=== PATIENT | female | born 1955 | race Caucasian/White ===

== ENCOUNTER 2020-08-20 12:33 | Inpatient (IN) | payer OTHER ==
[~2020-08-20] VITALS: Ht 170.2 cm; Wt 99.8 kg
[~2020-08-20 12:33] MED LIST: AMARYL1 MG PO; CRESTOR20 MG PO; ECOTRIN81 MG PO; HABITROL 21 MG P1 EA TOP; LYRICA150 MG PO; NORCO 5-325 TA1 EACH PO; NORVASC10 MG PO; PERCOCET 5-3251 EACH PO; TOPROL XL100 MG PO; TRAZODONE HCL100 MG PO; ZOLOFT100 MG PO
[2020-08-20 13:53] LABS: HEMOGLOBIN 13.4 gm/dl (12.3-15.3); RED BLOOD COUNT 4.56 M/UL (4.00-5.10); WHITE BLOOD COUNT 15.1 K/UL (4.5-11.0)
[2020-08-20] MEDS ORDERED: ROPINIROLE HCL1 MG PO (21:46)
[2020-08-20] MEDS ORDERED: PROTONIX40 MG PO (21:47)
[2020-08-20] MEDS ORDERED: COZAAR100 MG PO (21:47)
[2020-08-21 03:39] LABS: HEMOGLOBIN 11.6 gm/dl (12.3-15.3); RED BLOOD COUNT 3.9 M/UL (4.00-5.10); WHITE BLOOD COUNT 14.8 K/UL (4.5-11.0)
[2020-08-22 02:14] LABS: HEMOGLOBIN 11.1 gm/dl (12.3-15.3); RED BLOOD COUNT 3.81 M/UL (4.00-5.10); WHITE BLOOD COUNT 11.8 K/UL (4.5-11.0)
--- NOTE | 2020-08-23 01:08 | NUR ---
AT APPROXIMATELY 2300, NIKKI GUTIERREZ, ENTERED PATIENT'S ROOM IN RESPONSE TO AN IV BEEPING AND FOUND THAT PATIENT WAS PULLING OFF LEADS. WHEN MATT ATTEMPTED TO REPLACE LEADS, PT REFUSED TO ALLOW HER TO DO SO AND INFORMED MATT THAT SHE WAS 'GOING HOME'. AT THAT TIME, MATT CALLED OUT TO ME FROM THE ROOM THAT PATIENT WAS REMOVING HER LEADS. UPON ENTERING ROOM, FOUND THAT PATIENT WAS SITTING ON THE SIDE OF THE BED WITH TEARS IN HER EYES. MATT ASKED IF PT HAD CALLED HER , PT NODDED HER HEAD YES. PT THEN PROCEEDED TO BEGIN PUTTING HER CLOTHES ON. I LEFT THE ROOM AND CALLED REDDY, ASSOCIATE PROPERTY MANAGER, TO REPORT WHAT WAS GOING ON. REDDY ADVISED THAT PATIENT COULD NOT LEAVE THE FACILITY SAFELY DUE TO THE NATURE OF HER ILLNESS, INSTRUCTED ME TO CALL PATIENT'S FAMILY AND EXPLAIN THE SITUATION AND THEN TRY TO EXPLAIN THIS TO THE PATIENT. RE-ENTERED PATIENT'S ROOM AND BEGAN TO EXPLAIN THE SITUATION WHEN I WAS INFORMED BY NIKKI TYLER, THAT REDDY WAS ON THE PHONE. UPON ANSWERING PHONE, REDDY STATED THAT PATIENT'S WAS CURRENTLY IN THE BUILDING AND ON THE WAY UP INTENDING TO TAKE PATIENT HOME. PATIENT'S ENTERED ROOM AND BEGAN CONSOLING PATIENT AND EXPLAINING TO THE PATIENT THAT SHE COULD NOT GO HOME UNTIL CLEARED BY THE PHYSICIAN IN THE MORNING. AFTER CALMING DOWN, PATIENT LAID DOWN WITH AT BEDSIDE AND IS CURRENTLY RESTING COMFORTABLY WITH EYES CLOSED. CALL RAE IS WITHIN REACH. PATIENT ALLOWED US TO REPLACE LEADS.
[2020-08-23 04:07] LABS: RED BLOOD COUNT 3.8 M/UL (4.00-5.10); WHITE BLOOD COUNT 14.6 K/UL (4.5-11.0)
[2020-08-24 08:41] LABS: HEMOGLOBIN 11.1 gm/dl (12.3-15.3); RED BLOOD COUNT 3.82 M/UL (4.00-5.10); WHITE BLOOD COUNT 12.9 K/UL (4.5-11.0)
[2020-08-24] MEDS ORDERED: CLOPIDOGREL75 MG PO (11:51)
[2020-08-24] MEDS ORDERED: SPIRIVA18 MCG INH (13:01)
[2020-08-24] MEDS ORDERED: SYMBICORT 160-1 INHA INH (13:01)
[2021-01-05] MEDS ORDERED: HYDROCHLOROTHIA25 MG PO (07:34)
== END 2020-08-24 14:33 | disposition home or self-care (01) | DRG 246 ==
LOC: ER1 12:33 → CDU 20:26 → MED SURG 4 08-21 08:38 → PROG CARE 08-22 13:21
PROVIDERS: Internal Medicine; Internal Medicine Interventional Cardiology; Internal Medicine Nephrology; Nurse Practitioner; Physician Assistant Medical; ADMIT Internal Medicine
PROC: 4A023N7 Measurement of Cardiac Sampling and Pressure, Left Heart, Percutaneous Approach (ICD-10-PCS; principal; 2020-08-22)
PROC: 027034Z Dilation of Coronary Artery, One Artery with Drug-eluting Intraluminal Device, Percutaneous Approach (ICD-10-PCS; 2020-08-22)
PROC: B2111ZZ Fluoroscopy of Multiple Coronary Arteries using Low Osmolar Contrast (ICD-10-PCS; 2020-08-22)
PROC: B2181ZZ Fluoroscopy of Left Internal Mammary Bypass Graft using Low Osmolar Contrast (ICD-10-PCS; 2020-08-22)
PROC: B41F1ZZ Fluoroscopy of Right Lower Extremity Arteries using Low Osmolar Contrast (ICD-10-PCS; 2020-08-22)
PROC: 3E03317 Introduction of Other Thrombolytic into Peripheral Vein, Percutaneous Approach (ICD-10-PCS; 2020-08-22)
DX: I21.4 Non-ST elevation (NSTEMI) myocardial infarction (principal); I63.89 Other cerebral infarction; Q61.3 Polycystic kidney, unspecified; N18.4 Chronic kidney disease, stage 4 (severe); R47.01 Aphasia; I97.820 Postprocedural cerebrovascular infarction following cardiac surgery; K21.9 Gastro-esophageal reflux disease without esophagitis; E78.5 Hyperlipidemia, unspecified; Z95.1 Presence of aortocoronary bypass graft; F17.210 Nicotine dependence, cigarettes, uncomplicated; Z82.3 Family history of stroke; I25.119 Atherosclerotic heart disease of native coronary artery with unspecified angina pectoris; J44.9 Chronic obstructive pulmonary disease, unspecified; D64.9 Anemia, unspecified; E66.9 Obesity, unspecified; K80.80 Other cholelithiasis without obstruction; Z84.1 Family history of disorders of kidney and ureter; Z79.82 Long term (current) use of aspirin; Z79.899 Other long term (current) drug therapy; I12.9 Hypertensive chronic kidney disease with stage 1 through stage 4 chronic kidney disease, or unspecified chronic kidney disease; E11.22 Type 2 diabetes mellitus with diabetic chronic kidney disease; Z68.34 Body mass index [BMI] 34.0-34.9, adult; Z20.822 Contact with and (suspected) exposure to COVID-19; Y84.0 Cardiac catheterization as the cause of abnormal reaction of the patient, or of later complication, without mention of misadventure at the time of the procedure; Y71.8 Miscellaneous cardiovascular devices associated with adverse incidents, not elsewhere classified; Y92.230 Patient room in hospital as the place of occurrence of the external cause; R47.81 Slurred speech
CPT/HCPCS: ECHO; 36415; 70450; 70551; 71045; 80048; 80053; 80061; 81001; 82009; 82150; 82550; 82553; 82962; 83036; 83605; 83690; 83735; 83874; 84439; 84443; 84484; 85025; 85027; 85347; 85730; 92610; 93005; 93306; 93880; 96365; 96366; 96375; 96376; 97161; 99152; 99153; 99285; C1725; C1760; C1769; C1874; C1887; C9113; J0360; J1644; J2250; J2270; J2405; J3010; J7030; J7040; Q9965; U0002

== ENCOUNTER 2020-09-16 11:19 | Inpatient (IN) | payer OTHER ==
[~2020-09-16] VITALS: Ht 170.2 cm; Wt 99.8 kg
[~2020-09-16 11:19] MED LIST changes: +CLOPIDOGREL75 MG PO; +COZAAR100 MG PO; +PROTONIX40 MG PO; +ROPINIROLE HCL1 MG PO; +SPIRIVA18 MCG INH; +SYMBICORT 160-1 INHA INH
[2020-09-16 12:58] LABS: HEMOGLOBIN 11.6 gm/dl (12.3-15.3); RED BLOOD COUNT 4.09 M/UL (4.00-5.10); WHITE BLOOD COUNT 18.7 K/UL (4.5-11.0)
[2020-09-17 03:43] LABS: HEMOGLOBIN 10.3 gm/dl (12.3-15.3); WHITE BLOOD COUNT 15.9 K/UL (4.5-11.0)
[2020-09-17 03:46] LABS: RED BLOOD COUNT 3.65 M/UL (4.00-5.10)
[2020-09-18] MEDS ORDERED: DOXYCYCLINE HY100 M2 PO (11:50)
[2020-09-18] MEDS ORDERED: OMNICEF 300 MG300 MG PO (11:50)
[2021-01-05] MEDS ORDERED: HYDROCHLOROTHIA25 MG PO (07:34)
== END 2020-09-18 16:30 | disposition home or self-care (01) | DRG 193 ==
LOC: ER1 11:19 → MED SURG 4 16:24 → CDU 16:24 → MED SURG 4 09-17 11:22
PROVIDERS: Physician Assistant Medical; ADMIT Internal Medicine
DX: J18.9 Pneumonia, unspecified organism (principal); I21.4 Non-ST elevation (NSTEMI) myocardial infarction; Q61.3 Polycystic kidney, unspecified; N18.4 Chronic kidney disease, stage 4 (severe); E11.22 Type 2 diabetes mellitus with diabetic chronic kidney disease; Z20.822 Contact with and (suspected) exposure to COVID-19; F17.210 Nicotine dependence, cigarettes, uncomplicated; E66.9 Obesity, unspecified; I12.9 Hypertensive chronic kidney disease with stage 1 through stage 4 chronic kidney disease, or unspecified chronic kidney disease; D63.1 Anemia in chronic kidney disease; J44.9 Chronic obstructive pulmonary disease, unspecified; I25.10 Atherosclerotic heart disease of native coronary artery without angina pectoris; Z95.5 Presence of coronary angioplasty implant and graft; Z95.1 Presence of aortocoronary bypass graft; Z86.73 Personal history of transient ischemic attack (TIA), and cerebral infarction without residual deficits; Z79.01 Long term (current) use of anticoagulants; Z79.82 Long term (current) use of aspirin; Z79.899 Other long term (current) drug therapy; Z82.3 Family history of stroke; Z82.71 Family history of polycystic kidney
CPT/HCPCS: 0240U; 36415; 71045; 80048; 80053; 80202; 81001; 82550; 82553; 82962; 83605; 83690; 83874; 83880; 84484; 85025; 85379; 86140; 87040; 93005; 94640; 94664; 94760; 96365; 96366; 96367; 96372; 96375; 96376; 99285; C9113; G0378; J0692; J1650; J1940; J2543; J3370; J7070

== ENCOUNTER 2020-10-04 15:09 | Emergency (ER) | payer OTHER ==
[~2020-10-04 15:09] MED LIST changes: +DOXYCYCLINE HY100 M2 PO; +OMNICEF 300 MG300 MG PO
[2020-10-04 16:48] LABS: HEMOGLOBIN 11.2 gm/dl (12.3-15.3); RED BLOOD COUNT 4.04 M/UL (4.00-5.10); WHITE BLOOD COUNT 15.7 K/UL (4.5-11.0)
[2020-10-04] MEDS ORDERED: AZITHROMYCIN500 MG PO (18:26)
[2020-10-04] MEDS ORDERED: PREDNISONE 20 M20 MG PO (18:26)
[2021-01-05] MEDS ORDERED: HYDROCHLOROTHIA25 MG PO (07:34)
== END 2020-10-04 18:45 | disposition home or self-care (01) ==
LOC: ER1 15:09
PROVIDERS: Emergency Medicine
DX: J44.1 Chronic obstructive pulmonary disease with (acute) exacerbation (principal); E11.9 Type 2 diabetes mellitus without complications; E78.5 Hyperlipidemia, unspecified; I11.0 Hypertensive heart disease with heart failure; I50.9 Heart failure, unspecified; Z20.822 Contact with and (suspected) exposure to COVID-19; F17.290 Nicotine dependence, other tobacco product, uncomplicated; Z95.1 Presence of aortocoronary bypass graft
CPT/HCPCS: 0240U; 71045; 80053; 82550; 82553; 83690; 83735; 83874; 83880; 84100; 84484; 85025; 85610; 85730; 93005; 94664; 99285

== ENCOUNTER → 2020-12-23 | Outpatient (CLI) | payer OTHER ==
[~2020-12-23] MED LIST changes: +ASPIRIN EC81 MG PO; +ATIVAN0.5 MG PO; +AZITHROMYCIN500 MG PO; +FERROUS GLUCON324 M2 PO; +HYDROCHLOROTHIA25 MG PO; +HYDROCODONE-AC1 EACH PO; +ISOSORBIDE MONO30 MG PO; +MONTELUKAST SOD10 MG PO; +NEURONTIN400 MG PO; +PREDNISONE 20 M20 MG PO; +XYZAL5 MG PO
== END ==
LOC: RAD 15:40
DX: J44.9 Chronic obstructive pulmonary disease, unspecified (principal); R06.02 Shortness of breath; M19.90 Unspecified osteoarthritis, unspecified site; M54.5 Low back pain; M54.6 Pain in thoracic spine; M47.814 Spondylosis without myelopathy or radiculopathy, thoracic region; M51.36 Other intervertebral disc degeneration, lumbar region
CPT/HCPCS: 71046; 72072; 72100

== ENCOUNTER 2020-12-29 15:12 | Emergency (ER) | payer OTHER ==
[~2020-12-29 15:12] MED LIST changes: -ASPIRIN EC81 MG PO; -ATIVAN0.5 MG PO; -FERROUS GLUCON324 M2 PO; -HYDROCHLOROTHIA25 MG PO; -HYDROCODONE-AC1 EACH PO; -ISOSORBIDE MONO30 MG PO; -MONTELUKAST SOD10 MG PO; -NEURONTIN400 MG PO; -XYZAL5 MG PO
[2020-12-29 18:51] LABS: HEMOGLOBIN 8.2 gm/dl (12.3-15.3); RED BLOOD COUNT 2.96 M/UL (4.00-5.10); WHITE BLOOD COUNT 16.2 K/UL (4.5-11.0)
[2020-12-29 19:29] LABS: BUN/CREATININE RATIO 18 (0-10)
[2021-01-05] MEDS ORDERED: HYDROCHLOROTHIA25 MG PO (07:34)
== END 2020-12-29 23:00 | disposition home or self-care (01) ==
LOC: ER1 15:12
PROVIDERS: Emergency Medicine
DX: N18.9 Chronic kidney disease, unspecified (principal); D63.1 Anemia in chronic kidney disease
CPT/HCPCS: 71045; 80053; 81001; 82272; 82550; 82553; 83874; 83880; 84484; 85025; 87086; 99285

== ENCOUNTER 2021-01-04 08:24 | Emergency (ER) | payer OTHER ==
[2021-01-04 09:51] LABS: HEMOGLOBIN 7.4 gm/dl (12.3-15.3); RED BLOOD COUNT 2.71 M/UL (4.00-5.10); WHITE BLOOD COUNT 15.4 K/UL (4.5-11.0)
[2021-01-04 10:25] LABS: BUN/CREATININE RATIO 20 (0-10)
[2021-01-05] MEDS ORDERED: HYDROCHLOROTHIA25 MG PO (07:34)
== END 2021-01-04 20:10 | disposition home or self-care (01) ==
LOC: ER1 08:24
PROVIDERS: Physician Assistant
DX: T80.92XA Unspecified transfusion reaction, initial encounter (principal); D64.9 Anemia, unspecified; E78.5 Hyperlipidemia, unspecified; I25.2 Old myocardial infarction; E11.9 Type 2 diabetes mellitus without complications; Z86.73 Personal history of transient ischemic attack (TIA), and cerebral infarction without residual deficits
CPT/HCPCS: 36430; 71045; 80053; 82270; 82550; 82553; 82728; 83540; 83550; 83874; 84484; 85025; 86850; 86900; 86901; 86920; 99285; P9016

== ENCOUNTER → 2021-01-05 | Day surgery (SDC) | payer OTHER ==
[~2021-01-05] MED LIST changes: +ASPIRIN EC81 MG PO; +ATIVAN0.5 MG PO; +FERROUS GLUCON324 M2 PO; +HYDROCHLOROTHIA25 MG PO; +HYDROCODONE-AC1 EACH PO; +ISOSORBIDE MONO30 MG PO; +MONTELUKAST SOD10 MG PO; +NEURONTIN400 MG PO; +XYZAL5 MG PO
== END | disposition home or self-care (01) ==
LOC: OR 06:24
PROVIDERS: Internal Medicine Gastroenterology
PROC: 0DJD8ZZ Inspection of Lower Intestinal Tract, Via Natural or Artificial Opening Endoscopic (ICD-10-PCS; 2021-01-05)
PROC: 0DB68ZX Excision of Stomach, Via Natural or Artificial Opening Endoscopic, Diagnostic (ICD-10-PCS; principal; 2021-01-05 08:00)
PROC: 0DB78ZX Excision of Stomach, Pylorus, Via Natural or Artificial Opening Endoscopic, Diagnostic (ICD-10-PCS; 2021-01-05 08:00)
DX: K31.9 Disease of stomach and duodenum, unspecified (principal); K29.50 Unspecified chronic gastritis without bleeding; K25.9 Gastric ulcer, unspecified as acute or chronic, without hemorrhage or perforation; K64.1 Second degree hemorrhoids; D50.0 Iron deficiency anemia secondary to blood loss (chronic); F17.210 Nicotine dependence, cigarettes, uncomplicated; E78.00 Pure hypercholesterolemia, unspecified; Q61.3 Polycystic kidney, unspecified; I25.10 Atherosclerotic heart disease of native coronary artery without angina pectoris; E78.5 Hyperlipidemia, unspecified; J44.9 Chronic obstructive pulmonary disease, unspecified; K21.9 Gastro-esophageal reflux disease without esophagitis; G25.81 Restless legs syndrome; I13.10 Hypertensive heart and chronic kidney disease without heart failure, with stage 1 through stage 4 chronic kidney disease, or unspecified chronic kidney disease; E11.22 Type 2 diabetes mellitus with diabetic chronic kidney disease; N18.2 Chronic kidney disease, stage 2 (mild); E66.01 Morbid (severe) obesity due to excess calories; Z68.33 Body mass index [BMI] 33.0-33.9, adult; Z79.84 Long term (current) use of oral hypoglycemic drugs; Z79.891 Long term (current) use of opiate analgesic; Z79.02 Long term (current) use of antithrombotics/antiplatelets; Z79.899 Other long term (current) drug therapy; Z86.73 Personal history of transient ischemic attack (TIA), and cerebral infarction without residual deficits
CPT/HCPCS: 82962; J2001; J2250; J2704; J7040

== ENCOUNTER 2021-01-16 01:06 | Inpatient (IN) | payer OTHER ==
[~2021-01-16] VITALS: Ht 170.2 cm; Wt 95.3 kg
[~2021-01-16 01:06] MED LIST changes: -ASPIRIN EC81 MG PO; -ATIVAN0.5 MG PO; -FERROUS GLUCON324 M2 PO; -HYDROCODONE-AC1 EACH PO; -ISOSORBIDE MONO30 MG PO; -MONTELUKAST SOD10 MG PO; -NEURONTIN400 MG PO; -XYZAL5 MG PO
[2021-01-16 01:57] LABS: RED BLOOD COUNT 2.34 M/UL (4.00-5.10); WHITE BLOOD COUNT 20.9 K/UL (4.5-11.0)
[2021-01-16 02:01] LABS: HEMOGLOBIN 6.5 gm/dl (12.3-15.3)
[2021-01-16 02:50] LABS: BUN/CREATININE RATIO 24 (0-10)
[2021-01-16 08:47] LABS: HEMOGLOBIN 8.2 gm/dl (12.3-15.3); WHITE BLOOD COUNT 18.9 K/UL (4.5-11.0)
[2021-01-16 08:53] LABS: RED BLOOD COUNT 2.88 M/UL (4.00-5.10)
[2021-01-16] MEDS ORDERED: HYDROCODONE-AC1 EACH PO (11:30)
[2021-01-16] MEDS ORDERED: ISOSORBIDE MONO30 MG PO (11:32)
[2021-01-16] MEDS ORDERED: MONTELUKAST SOD10 MG PO (11:34)
[2021-01-16] MEDS ORDERED: ASPIRIN EC81 MG PO (11:36)
[2021-01-16] MEDS ORDERED: XYZAL5 MG PO (11:37)
[2021-01-16] MEDS ORDERED: NEURONTIN400 MG PO ×2 (21:48)
[2021-01-16] MEDS ORDERED: ATIVAN0.5 MG PO (22:32)
[2021-01-17 03:43] LABS: HEMOGLOBIN 7.2 gm/dl (12.3-15.3); WHITE BLOOD COUNT 19.3 K/UL (4.5-11.0)
[2021-01-17 03:53] LABS: RED BLOOD COUNT 2.57 M/UL (4.00-5.10)
[2021-01-17] MEDS ORDERED: PROTONIX40 MG PO (16:33)
[2021-01-18 04:26] LABS: RED BLOOD COUNT 2.45 M/UL (4.00-5.10); WHITE BLOOD COUNT 17.7 K/UL (4.5-11.0)
[2021-01-18 04:35] LABS: HEMOGLOBIN 6.9 gm/dl (12.3-15.3)
--- NOTE | 2021-01-18 06:19 | NUR ---
NOTIFIED DR FERNANDEZ OF [facility] ([facility] 6.9). RECIEVED ORDERS. WILL CONTINUE TO MONITOR.
[2021-01-19 03:49] LABS: HEMOGLOBIN 7.8 gm/dl (12.3-15.3); WHITE BLOOD COUNT 14.3 K/UL (4.5-11.0)
[2021-01-19 04:10] LABS: RED BLOOD COUNT 2.77 M/UL (4.00-5.10)
[2021-01-19 10:13] LABS: HAPTOGLOBIN 256 mg/dL (37-355)
[2021-01-19 15:13] LABS: HEMATOCRIT 21.1 % (34.0-46.6)
[2021-01-19 16:13] LABS: A/G RATIO 0.9 (0.7-1.7); ALBUMIN 3.2 g/dL (2.9-4.4); ALPHA-1-GLOBULIN 0.3 g/dL (0.0-0.4); BETA GLOBULIN 1.2 g/dL (0.7-1.3); GAMMA GLOBULIN 1.3 g/dL (0.4-1.8); GLOBULIN, TOTAL 3.8 g/dL (2.2-3.9); IMMUNOGLOBULIN A, QN, SERUM 498 mg/dL (87-352); IMMUNOGLOBULIN G, QN, SERUM 1090 mg/dL (586-1602); IMMUNOGLOBULIN M, QN, SERUM 103 mg/dL (26-217); M-SPIKE Not Observed g/dL (Not Observed)
[2021-01-19 16:13] LABS: ENDOMYSIAL ANTIBODY IGA Negative (Negative); IMMUNOGLOBULIN A, QN, SERUM 477 mg/dL (87-352); T-TRANSGLUTAMINASE (TTG) IGA <2 U/mL (0-3); T-TRANSGLUTAMINASE (TTG) IGG 4 U/mL (0-5)
[2021-01-20 04:31] LABS: HEMOGLOBIN 7.9 gm/dl (12.3-15.3); RED BLOOD COUNT 2.79 M/UL (4.00-5.10); WHITE BLOOD COUNT 12.3 K/UL (4.5-11.0)
[2021-01-20] MEDS ORDERED: FERROUS GLUCON324 M2 PO (11:57)
== END 2021-01-20 13:30 | disposition home or self-care (01) | DRG 812 ==
LOC: ER1 01:06 → CDU 09:03 → MED SURG 4 09:03
PROVIDERS: Family Medicine; Internal Medicine Gastroenterology; Physician Assistant; Registered Nurse; ADMIT Internal Medicine
PROC: 30233N1 Transfusion of Nonautologous Red Blood Cells into Peripheral Vein, Percutaneous Approach (ICD-10-PCS; principal; 2021-01-19)
DX: D50.9 Iron deficiency anemia, unspecified (principal); N18.4 Chronic kidney disease, stage 4 (severe); Q61.3 Polycystic kidney, unspecified; I12.9 Hypertensive chronic kidney disease with stage 1 through stage 4 chronic kidney disease, or unspecified chronic kidney disease; E11.22 Type 2 diabetes mellitus with diabetic chronic kidney disease; E78.5 Hyperlipidemia, unspecified; I25.10 Atherosclerotic heart disease of native coronary artery without angina pectoris; J44.9 Chronic obstructive pulmonary disease, unspecified; E66.9 Obesity, unspecified; F17.210 Nicotine dependence, cigarettes, uncomplicated; Z20.822 Contact with and (suspected) exposure to COVID-19; E11.51 Type 2 diabetes mellitus with diabetic peripheral angiopathy without gangrene; R00.1 Bradycardia, unspecified; I65.21 Occlusion and stenosis of right carotid artery; Z98.890 Other specified postprocedural states; I25.2 Old myocardial infarction; Z95.1 Presence of aortocoronary bypass graft; Z86.73 Personal history of transient ischemic attack (TIA), and cerebral infarction without residual deficits; Z90.89 Acquired absence of other organs; Z82.3 Family history of stroke; Z79.82 Long term (current) use of aspirin
CPT/HCPCS: 36415; 36430; 36600; 71045; 80048; 80053; 82272; 82550; 82553; 82607; 82668; 82728; 82747; 82784; 82803; 82962; 83010; 83540; 83550; 83615; 83874; 83880; 83883; 83921; 84155; 84165; 84484; 85025; 85045; 86334; 86850; 86880; 86900; 86901; 86920; 87040; 93005; 94664; 94760; 96374; 96375; 96376; 97116-GP-CQ; 97161; 97530; 99285; G0378; J0696; J1756; J7050; P9016; U0002

== ENCOUNTER → 2021-01-22 | Outpatient (CLI) | payer OTHER ==
[~2021-01-22] MED LIST changes: +ASPIRIN EC81 MG PO; +ATIVAN0.5 MG PO; +FERROUS GLUCON324 M2 PO; +HYDROCODONE-AC1 EACH PO; +ISOSORBIDE MONO30 MG PO; +MONTELUKAST SOD10 MG PO; +NEURONTIN400 MG PO; +XYZAL5 MG PO
[2021-01-22 16:44] LABS: HEMOGLOBIN 8.7 gm/dl (12.3-15.3)
== END ==
LOC: LAB 16:12
PROVIDERS: Internal Medicine
DX: D64.9 Anemia, unspecified (principal)
CPT/HCPCS: 36415; 85014; 85018

== ENCOUNTER → 2021-02-12 | Outpatient (CLI) | payer OTHER | LOC: HEART 5 09:19 | DX: J44.9 Chronic obstructive pulmonary disease, unspecified (principal); R06.02 Shortness of breath | CPT/HCPCS: 94060; 94729 ==

== ENCOUNTER → 2021-06-14 | Outpatient (CLI) | payer OTHER | LOC: KOH-I 13:11 | DX: F17.210 Nicotine dependence, cigarettes, uncomplicated (principal); Q61.3 Polycystic kidney, unspecified | CPT/HCPCS: 71271 ==

== ENCOUNTER → 2021-06-21 | Outpatient (CLI) | payer OTHER | LOC: EXRD 08:55 → MAMO 10:30 | DX: Z12.31 Encounter for screening mammogram for malignant neoplasm of breast (principal) | CPT/HCPCS: 76706; 77063; 77067; 77080 ==

== ENCOUNTER 2021-07-05 02:57 | Inpatient (IN) | payer OTHER ==
[~2021-07-05] VITALS: Ht 170.2 cm; Wt 94.8 kg
[~2021-07-05 02:57] MED LIST changes: -AMARYL1 MG PO; -ATIVAN0.5 MG PO; -MONTELUKAST SOD10 MG PO; -NORVASC10 MG PO; -ROPINIROLE HCL1 MG PO; -TOPROL XL100 MG PO; -ZOLOFT100 MG PO
[2021-07-05 03:22] LABS: RED BLOOD COUNT 3.21 M/UL (4.00-5.10); WHITE BLOOD COUNT 15.6 K/UL (4.5-11.0)
[2021-07-05] MEDS ORDERED: MONTELUKAST SOD10 MG PO (11:34)
[2021-07-05] MEDS ORDERED: VITAMIN C500 M4 PO (11:37)
[2021-07-05] MEDS ORDERED: ROPINIROLE HCL1 MG PO (21:46)
[2021-07-05] MEDS ORDERED: NEURONTIN400 MG PO (21:48)
[2021-07-05] MEDS ORDERED: ATIVAN0.5 MG PO (22:32)
[2021-07-05] MEDS ORDERED: TOPROL XL200 MG PO (22:36)
[2021-07-05] MEDS ORDERED: NORVASC10 MG PO (22:36)
[2021-07-05] MEDS ORDERED: AMARYL1 MG PO (22:37)
[2021-07-05] MEDS ORDERED: ZOLOFT100 MG PO (22:38)
[2021-07-06 08:17] LABS: HEMOGLOBIN 8.8 gm/dl (12.3-15.3); WHITE BLOOD COUNT 16.7 K/UL (4.5-11.0)
[2021-07-06 08:18] LABS: RED BLOOD COUNT 2.76 M/UL (4.00-5.10)
[2021-07-06] MEDS ORDERED: MEDROL4 MG PO (11:06)
[2021-07-06] MEDS ORDERED: PROVENTIL HFA6.7 GM INH (11:06)
[2021-07-06] MEDS ORDERED: AZITHROMYCIN250 MG PO (11:06)
== END 2021-07-06 12:55 | disposition home or self-care (01) | DRG 189 ==
LOC: ER1 02:57 → CDU 05:52 → MED SURG 4 21:26
PROVIDERS: Emergency Medicine; Internal Medicine; ADMIT Internal Medicine
DX: J96.01 Acute respiratory failure with hypoxia (principal); J44.1 Chronic obstructive pulmonary disease with (acute) exacerbation; J44.0 Chronic obstructive pulmonary disease with (acute) lower respiratory infection; Q61.3 Polycystic kidney, unspecified; Z20.822 Contact with and (suspected) exposure to COVID-19; J40 Bronchitis, not specified as acute or chronic; I25.10 Atherosclerotic heart disease of native coronary artery without angina pectoris; E11.22 Type 2 diabetes mellitus with diabetic chronic kidney disease; D50.9 Iron deficiency anemia, unspecified; Z96.698 Presence of other orthopedic joint implants; F17.210 Nicotine dependence, cigarettes, uncomplicated; I12.9 Hypertensive chronic kidney disease with stage 1 through stage 4 chronic kidney disease, or unspecified chronic kidney disease; N18.9 Chronic kidney disease, unspecified; D72.829 Elevated white blood cell count, unspecified; R04.0 Epistaxis; Z86.73 Personal history of transient ischemic attack (TIA), and cerebral infarction without residual deficits; Z79.01 Long term (current) use of anticoagulants; Z79.82 Long term (current) use of aspirin; Z95.1 Presence of aortocoronary bypass graft; Z98.891 History of uterine scar from previous surgery; Z82.3 Family history of stroke
CPT/HCPCS: 0240U; 36415; 36600; 71045; 80048; 80053; 82550; 82553; 82728; 82803; 82962; 83540; 83550; 83690; 83874; 83880; 84484; 85025; 93005; 94640; 94664; 94760; 96374; 96375; 99285; J0456; J0696; J1644; J2920; J2930; J7030

== ENCOUNTER → 2021-08-31 | Outpatient (CLI) | payer OTHER ==
[~2021-08-31] MED LIST changes: +AMARYL1 MG PO; +ATIVAN0.5 MG PO; +AZITHROMYCIN250 MG PO; +MEDROL4 MG PO; +MONTELUKAST SOD10 MG PO; +NORVASC10 MG PO; +PROVENTIL HFA6.7 GM INH; +ROPINIROLE HCL1 MG PO; +TOPROL XL200 MG PO; +VITAMIN C500 M4 PO; +ZOLOFT100 MG PO
== END ==
LOC: US 11:00
DX: I77.9 Disorder of arteries and arterioles, unspecified (principal); I65.29 Occlusion and stenosis of unspecified carotid artery; I63.9 Cerebral infarction, unspecified; R09.89 Other specified symptoms and signs involving the circulatory and respiratory systems; E04.1 Nontoxic single thyroid nodule; I70.209 Unspecified atherosclerosis of native arteries of extremities, unspecified extremity
CPT/HCPCS: 93880

== ENCOUNTER → 2021-09-30 | Outpatient (CLI) | payer OTHER | LOC: MRI 10:00 | DX: I65.23 Occlusion and stenosis of bilateral carotid arteries (principal); I65.29 Occlusion and stenosis of unspecified carotid artery; E04.9 Nontoxic goiter, unspecified; E04.2 Nontoxic multinodular goiter | CPT/HCPCS: 70544; 76536 ==